=== PATIENT | female | born 1985 | race Caucasian/White ===

== ENCOUNTER 2018-04-12 14:34 | Emergency (ER) | payer OTHER ==
[~2018-04-12] VITALS: Ht 162.6 cm; Wt 61.0 kg
[2018-04-12 14:40] VITALS: BP 104/70
[2018-04-12] MEDS ORDERED: KETOROLAC 30 MG/1 ML IM ONE (15:30)
== END 2018-04-12 16:01 | disposition left against medical advice (07) ==
LOC: ED 15:55
DX: J18.9 Pneumonia, unspecified organism (principal); J45.909 Unspecified asthma, uncomplicated; Z88.0 Allergy status to penicillin
CPT/HCPCS: 71046; 99284

== ENCOUNTER 2018-06-15 05:15 | Emergency (ER) | payer OTHER ==
[~2018-06-15] VITALS: Ht 162.6 cm; Wt 65.5 kg
[2018-06-15] MEDS ORDERED: LIDOCAINE-MPF 1%, 5ML INFIL ONE (05:30)
[2018-06-15] MEDS ORDERED: DIPH,PERTUSS(ACELL),TET VAC/PF 0.5 ML IM-VACC ONE ×2 (05:30→05:59)
[2018-06-15] MEDS ORDERED: LIDOCAINE-MPF 1%, 5ML ONE (05:59)
[2018-06-15] MEDS ORDERED: ACETAMINOPHEN 500 MG TABLET ONE (06:00)
[2018-06-15] MEDS ORDERED: ACETAMINOPHEN 500 MG TABLET PO ONE (06:00)
[2018-06-15 06:07] LABS: ANION GAP 7 mmol/L (5-15); CALCIUM 8.6 mg/dL (8.5-10.1); CHLORIDE 108 mmol/L (98-107)
[2018-06-15 06:08] LABS: ALBUMIN 3.5 g/dL (3.4-5.0); MEAN CORPUSCULAR HEMOGLOBIN 26.4 pg (27.0-34.8); MEAN CORPUSCULAR VOLUME 79.9 fL (80-100); MEAN PLATELET VOLUME 8.4 fL (7.4-10.4); PLATELET COUNT 228 x10^3/uL (130-400); RED CELL DISTRIBUTION WIDTH 27.4 % (9.6-15.2)
[2018-06-15 07:14] LABS: BASOPHILS # (AUTO) 0.02 x10^3/uL (0-0.1); BASOPHILS % (AUTO) 0 % (0-1); EOSINOPHILS # (AUTO) 0.07 x10^3/uL (0-0.4); EOSINOPHILS % (AUTO) 2 % (1-7); LYMPHOCYTES # (AUTO) 1.28 x10^3/uL (1-3.4); LYMPHOCYTES % (AUTO) 26 % (22-44); MD SCAN; MONOCYTES # (AUTO) 0.34 x10^3/uL (0.2-0.8); MONOCYTES % (AUTO) 7 % (2-9); NEUTROPHILS # (AUTO) 3.19 x10^3/uL (1.8-6.8); NEUTROPHILS % (AUTO) 65 % (42-75)
[2018-06-15] MEDS ORDERED: ONDANSETRON ODT 8 MG ONE (07:35)
[2018-06-15] MEDS ORDERED: IBUPROFEN 600 MG TABLET ONE (07:35)
[2018-06-15] MEDS ORDERED: IBUPROFEN 200 MG TABLET PO ONE (08:00)
[2018-06-15] MEDS ORDERED: ONDANSETRON ODT 8 MG PO ONE (08:00)
[2018-06-15 08:39] VITALS: BP 118/76
== END 2018-06-15 08:42 | disposition home or self-care (01) ==
LOC: ED 05:44
DX: S06.0X0A Concussion without loss of consciousness, initial encounter (principal); S01.01XA Laceration without foreign body of scalp, initial encounter; S39.012A Strain of muscle, fascia and tendon of lower back, initial encounter; R55 Syncope and collapse; H65.01 Acute serous otitis media, right ear; H72.91 Unspecified perforation of tympanic membrane, right ear
CPT/HCPCS: 36415; 70450; 72110; 72125; 80048; 82040; 84703; 85025; 90471; 90715; 99284; Q0162